=== PATIENT | male | born 1970 | race Two or more races ===

== ENCOUNTER 2018-01-02 09:18 | Emergency (ER) | payer SELFPAY ==
[~2018-01-02] VITALS: Ht 177.8 cm; Wt 105.0 kg
[2018-01-02 09:38] VITALS: BP 141/95
[2018-01-02] MEDS ORDERED: ACETAMINOPHEN 500MG TABLET PO ONE (09:45)
== END 2018-01-02 09:59 | disposition home or self-care (01) ==
LOC: ER 09:18
DX: S70.371A Other superficial bite of right thigh, initial encounter (principal); M25.561 Pain in right knee; Y04.1XXA Assault by human bite, initial encounter; Y93.89 Activity, other specified; Y92.89 Other specified places as the place of occurrence of the external cause; Y99.8 Other external cause status
CPT/HCPCS: 99282